=== PATIENT | male | born 1945 | race Caucasian/White ===

== ENCOUNTER → 2019-09-18 | Outpatient (CLI) | payer MEDICARE, OTHER ==
[~2019-09-18] MED LIST: ASPI-515 PO; ATOR10TA PO; AZIT250T PO; CHOL10003 PO; CHON250C PO; GLUC1CAP11 PO; GREE250C PO; LACT1CAP11 PO; LEVO50TA PO; LISI5TAB7 PO; MULT-717 PO; OMEG1CAP6 PO; SAW1CAPS6 PO; TUMERIC PO; UBID100C24 PO; ZOLP5TAB6 PO; [UNRECOGNIZED DRUG - OTHER] PO
[2019-09-18 12:43] LABS: ALANINE AMINOTRANSFERASE 41 U/L (12-78); ANION GAP 5 mmol/L (5-15); CALCIUM 8.8 mg/dL (8.5-10.1); CHLORIDE 106 mmol/L (98-107)
[2019-09-18 12:46] LABS: ALKALINE PHOSPHATASE 79 U/L (45-117); BILIRUBIN,TOTAL 0.7 mg/dL (0.2-1.0); CREATININE 0.97 mg/dL (0.7-1.3); TOTAL PROTEIN 7.7 g/dL (6.4-8.2)
== END | disposition home or self-care (01) ==
LOC: STAR 11:11
PROVIDERS: ATTEND Internal Medicine
DX: Z01.818 Encounter for other preprocedural examination (principal); D12.6 Benign neoplasm of colon, unspecified
CPT/HCPCS: 36415; 80053; 93005

== ENCOUNTER 2019-09-26 11:08 | Day surgery (SDC) | payer MEDICARE, OTHER ==
[~2019-09-26] VITALS: Ht 175.3 cm; Wt 91.0 kg
[2019-09-26 11:22] VITALS: BP 131/84
[2019-09-26] MEDS ORDERED: LACTATED RINGERS 1,000 ML IV SCH (11:26)
[2019-09-26] MEDS ORDERED: CHLORHEXIDINE 15 ML UDC MM ONE (11:30)
[2019-09-26] MEDS ORDERED: CHLORHEXIDINE 15 ML UDC ONE (11:31)
[2019-09-26] MEDS ORDERED: PROPOFOL 50 ML ONE (12:56)
[2019-09-26] MEDS ORDERED: PROPOFOL 10 MG/ML, 20ML ONE (14:43)
[2019-09-26] MEDS ORDERED: DEXAMETHASONE 4 MG/ML, 1ML ONE (14:43)
[2019-09-26] MEDS ORDERED: ROCURONIUM 10MG/ML,5ML ONE (14:43)
[2019-09-26] MEDS ORDERED: SUGAMMADEX 200 MG/2 ML IVPush ONE ×3 (14:43)
[2019-09-26] MEDS ORDERED: GLYCOPYRROLATE 0.2MG/1ML, 5ML ONE (14:43)
[2019-09-26] MEDS ORDERED: SUCCINYLCHOLINE 20 MG/ML, 10ML ONE (14:43)
[2019-09-26] MEDS ORDERED: ONDANSETRON 2MG/ML, 2ML ONE (14:43)
[2019-09-26] MEDS ORDERED: NEOSTIGMINE 1 MG/ML, 10ML ONE (14:43)
[2019-09-26] MEDS ORDERED: CEFAZOLIN 1,000 MG ONE (14:43)
== END 2019-09-26 14:45 | disposition home or self-care (01) ==
LOC: OUT 11:08
PROVIDERS: ATTEND Internal Medicine
DX: Z09 Encounter for follow-up examination after completed treatment for conditions other than malignant neoplasm (principal); D12.2 Benign neoplasm of ascending colon; K57.30 Diverticulosis of large intestine without perforation or abscess without bleeding; I10 Essential (primary) hypertension; E03.9 Hypothyroidism, unspecified; E78.5 Hyperlipidemia, unspecified; Z86.010 Personal history of colon polyps; Z88.0 Allergy status to penicillin
CPT/HCPCS: 45380; 88305; J2704; J7120; J0690; J1100; J2405; J2710; J0330

== ENCOUNTER → 2019-10-13 | Outpatient (CLI) | payer MEDICARE, OTHER ==
[~2019-10-13] MED LIST changes: +GLUC500T11 PO
[2019-10-13 15:36] LABS: BASOPHILS # (AUTO) 0.03 x10^3/uL (0-0.1); BASOPHILS % (AUTO) 0 % (0-1); EOSINOPHILS # (AUTO) 0.28 x10^3/uL (0-0.4); EOSINOPHILS % (AUTO) 4 % (1-7); LYMPHOCYTES # (AUTO) 1.49 x10^3/uL (1-3.4); LYMPHOCYTES % (AUTO) 20 % (22-44); MD NO; MEAN CORPUSCULAR HEMOGLOBIN 32.4 pg (27.5-34.5); MEAN CORPUSCULAR HGB CONC 33.5 g/dL (33.2-36.2); MEAN CORPUSCULAR VOLUME 96.5 fL (81-97); MEAN PLATELET VOLUME 7.7 fL (7.4-10.4); MONOCYTES # (AUTO) 0.74 x10^3/uL (0.2-0.8); MONOCYTES % (AUTO) 10 % (2-9); NEUTROPHILS # (AUTO) 4.84 x10^3/uL (1.8-6.8); NEUTROPHILS % (AUTO) 66 % (42-75); PLATELET COUNT 261 x10^3/uL (130-400); RED BLOOD COUNT 5.04 x10^6/uL (4.38-5.82); RED CELL DISTRIBUTION WIDTH 13.3 % (9.4-14.8)
[2019-10-13 15:38] LABS: MICROSCOPIC NOT IND
[2019-10-13 15:44] LABS: INTERNATIONAL NORMALIZED RATIO 0.94 (0.93-1.1)
[2019-10-13 15:58] LABS: ANION GAP 6 mmol/L (5-15); CALCIUM 8.9 mg/dL (8.5-10.1); CHLORIDE 105 mmol/L (98-107)
[2019-10-13 16:08] LABS: CREATININE 1.14 mg/dL (0.7-1.3); PSA SCREEN 3.21 ng/mL (0.00-4.00)
[2019-10-13 17:56] LABS: ALBUMIN 4.3 g/dL (3.4-5.0); BILIRUBIN,TOTAL 0.5 mg/dL (0.2-1.0); TOTAL PROTEIN 8.3 g/dL (6.4-8.2)
[2019-10-13 18:20] LABS: ALANINE AMINOTRANSFERASE 47 U/L (12-78)
[2019-10-13 18:22] LABS: ALKALINE PHOSPHATASE 99 U/L (45-117)
== END | disposition home or self-care (01) ==
LOC: STAR 14:22
PROVIDERS: ATTEND Urology
DX: Z01.818 Encounter for other preprocedural examination (principal); Z12.5 Encounter for screening for malignant neoplasm of prostate; N40.1 Benign prostatic hyperplasia with lower urinary tract symptoms
CPT/HCPCS: 36415; 80053; 81003; 85025; 85610; 85730; 87086; 93005; G0103